=== PATIENT | female | born 1955 | race African-American/Black ===

== ENCOUNTER 2021-12-26 04:46 | Day surgery (SDC) | payer OTHER ==
[2021-12-22 15:24] VITALS: BMI 32.3
[2021-12-26 12:01] VITALS: TEMP 97.8
[2021-12-26 12:28] VITALS: PULSE 47
[2021-12-26 12:42] VITALS: BP 133/67
== END 2021-12-26 13:22 | disposition home or self-care (01) ==
LOC: JASU-ENDO 04:46
PROVIDERS: ATTEND Internal Medicine Gastroenterology
PROC: 0DB78ZX Excision of Stomach, Pylorus, Via Natural or Artificial Opening Endoscopic, Diagnostic (ICD-10-PCS; 2021-12-26)
PROC: 0DB68ZX Excision of Stomach, Via Natural or Artificial Opening Endoscopic, Diagnostic (ICD-10-PCS; 2021-12-26)
PROC: 0DB48ZX Excision of Esophagogastric Junction, Via Natural or Artificial Opening Endoscopic, Diagnostic (ICD-10-PCS; principal; 2021-12-26 11:30)
DX: K21.00 Gastro-esophageal reflux disease with esophagitis, without bleeding (principal); K44.9 Diaphragmatic hernia without obstruction or gangrene; K29.50 Unspecified chronic gastritis without bleeding
CPT/HCPCS: 82962; 88305-TC; 88342-TC

== ENCOUNTER 2022-12-21 17:13 | Inpatient (IN) | payer OTHER ==
[2022-12-21] MEDS ORDERED: LACTATED RINGERS SOLUTION 1000 ML INFUS.BAG IV ONE (18:11)
[2022-12-21] MEDS ORDERED: ACETAMINOPHEN 1000 MG/100 ML BAG IVPB ONE (18:14)
[2022-12-21] MEDS ORDERED: FAMOTIDINE 20 MG TABLET PO ONE (18:15)
[2022-12-21] MEDS ORDERED: MAG HYDROX/AL HYDROX/SIMETH 30 ML UNIT-DOSE CUP PO ONE (18:15)
[2022-12-21] MEDS ORDERED: FAMOTIDINE 20 MG TABLET ONE (18:30)
[2022-12-21] MEDS ORDERED: ACETAMINOPHEN INJECTION 100 ML IVPB ONE (18:30)
[2022-12-21] MEDS ORDERED: MAG HYDROX/AL HYDROX/SIMETH 30 ML UNIT-DOSE CUP ONE (18:31)
[2022-12-21 19:24] LABS: BASO % 0.2 % (0-2.0); EOS % 0.1 % (0-4.5); HEMATOCRIT 37.9 % (32.4-45.2); LYMPH % 6.9 % (8-40); MCH 27.3 pg (25.7-33.7); MCHC 31.7 g/dl (32.0-36.0); MEAN CELL VOLUME 86.2 fl (80-96); MEAN PLT VOLUME 10.3 fl (7.5-11.1); MONO % 11.4 % (3.8-10.2); NEUT % 81.4 % (42.8-82.8); PLATELET COUNT 217 10^3/uL (134-434); RDW 16.3 % (11.6-15.6); WHITE BLOOD COUNT 12.8 K/mm3 (4.0-10.0)
[2022-12-21 19:43] LABS: POTASSIUM 3.5 mmol/L (3.5-5.1)
[2022-12-21 19:45] LABS: CALCIUM 8.9 mg/dL (8.5-10.1)
[2022-12-21 19:46] LABS: ALBUMIN 3.1 g/dl (3.4-5.0); BLOOD UREA NITROGEN 19.9 mg/dL (7-18)
[2022-12-21 19:47] LABS: MAGNESIUM 2.1 mg/dL (1.8-2.4)
[2022-12-21 19:50] LABS: BILIRUBIN,TOTAL 0.3 mg/dL (0.2-1); TOT PROT 6.4 g/dl (6.4-8.2)
[2022-12-21] MEDS ORDERED: ASPIRIN 81 MG CHEWABLE TABLETS PO ONE (21:53)
[2022-12-21] MEDS ORDERED: ASPIRIN 81 MG CHEWABLE TABLETS ONE (22:02)
[2022-12-22 00:22] LABS: EPI CELLS 12 /uL (0-25.1); HYALINE CASTS 0 /uL (0-3.1); PH,URINE 6.5 (5.0-8.0); URINE APPEARANCE CLEAR; URINE BACTERIA 36 /uL (0-1359); URINE BILIRUBIN NEGATIVE (NEGATIVE); URINE COLOR YELLOW; URINE GLUCOSE (UA) NEGATIVE (NEGATIVE); URINE KETONE NEGATIVE (NEGATIVE); URINE LEUK ESTERASE NEGATIVE (NEGATIVE); URINE NITRITE NEGATIVE (NEGATIVE); URINE PROTEIN NEGATIVE (NEGATIVE); URINE RBC 43 /uL (0-23.9); URINE UROBILINOGEN 0.2 mg/dL (0.2-1.0); URINE WBC 5 /uL (0-25.8)
[2022-12-22 05:40] VITALS: BMI 30.6
[2022-12-22] MEDS: LEVOTHYROXINE NA 50 MCG TABLET (FP) PO SCH (06:17)
[2022-12-22 07:16] LABS: BASO % 0.7 % (0-2.0); EOS % 1.7 % (0-4.5); HEMATOCRIT 32.2 % (32.4-45.2); HEMOGLOBIN 10.6 GM/dL (10.7-15.3); LYMPH % 25.4 % (8-40); MCH 27.7 pg (25.7-33.7); MCHC 32.8 g/dl (32.0-36.0); MEAN CELL VOLUME 84.5 fl (80-96); MEAN PLT VOLUME 10.2 fl (7.5-11.1); MONO % 9.1 % (3.8-10.2); NEUT % 63.1 % (42.8-82.8); PLATELET COUNT 191 10^3/uL (134-434); RBC 3.81 M/mm3 (3.60-5.2); RDW 15.8 % (11.6-15.6); WHITE BLOOD COUNT 9.6 K/mm3 (4.0-10.0)
[2022-12-22 07:31] LABS: CHLORIDE 106 mmol/L (98-107); SODIUM 143 mmol/L (136-145)
[2022-12-22 07:37] LABS: ALBUMIN 2.9 g/dl (3.4-5.0); BLOOD UREA NITROGEN 16.9 mg/dL (7-18); CO2 28 mmol/L (21-32); GLUCOSE,RANDOM 89 mg/dL (74-106)
[2022-12-22 07:40] LABS: CREATININE 0.8 mg/dL (0.55-1.3); SGOT/AST 12 U/L (15-37); SGPT/ALT 18 U/L (13-61)
[2022-12-22 07:42] LABS: ALK PHOS 67 U/L (45-117); BILIRUBIN,TOTAL 0.3 mg/dL (0.2-1)
[2022-12-22 07:45] LABS: ANION GAP 9 MMOL/L (8-16); POTASSIUM 2.7 mmol/L (3.5-5.1)
[2022-12-22 08:58] LABS: CHLORIDE 106 mmol/L (98-107); SODIUM 142 mmol/L (136-145)
[2022-12-22 09:04] LABS: POTASSIUM 2.8 mmol/L (3.5-5.1)
[2022-12-22 09:09] LABS: EPI CELLS 6 /uL (0-25.1); HYALINE CASTS 0 /uL (0-3.1); PH,URINE 6.5 (5.0-8.0); URINE APPEARANCE CLEAR; URINE BACTERIA 56 /uL (0-1359); URINE BILIRUBIN NEGATIVE (NEGATIVE); URINE COLOR YELLOW; URINE GLUCOSE (UA) NEGATIVE (NEGATIVE); URINE KETONE NEGATIVE (NEGATIVE); URINE LEUK ESTERASE NEGATIVE (NEGATIVE); URINE NITRITE NEGATIVE (NEGATIVE); URINE PROTEIN NEGATIVE (NEGATIVE); URINE RBC 33 /uL (0-23.9); URINE UROBILINOGEN 0.2 mg/dL (0.2-1.0); URINE WBC 4 /uL (0-25.8)
[2022-12-22 09:09] LABS: ALBUMIN 3.2 g/dl (3.4-5.0); ANION GAP 9 MMOL/L (8-16); BLOOD UREA NITROGEN 15.8 mg/dL (7-18); CALCIUM 9.1 mg/dL (8.5-10.1); CO2 28 mmol/L (21-32); GLUCOSE,RANDOM 100 mg/dL (74-106); MAGNESIUM 2.3 mg/dL (1.8-2.4)
[2022-12-22 09:12] LABS: CREATININE 0.8 mg/dL (0.55-1.3); PHOSPHOROUS 2.4 mg/dL (2.5-4.9); SGOT/AST 12 U/L (15-37); SGPT/ALT 20 U/L (13-61)
[2022-12-22 09:14] LABS: BILIRUBIN,TOTAL 0.3 mg/dL (0.2-1); TOT PROT 6.5 g/dl (6.4-8.2)
[2022-12-22 09:15] LABS: ALK PHOS 72 U/L (45-117)
[2022-12-22 09:19] LABS: CHOLESTEROL 117 mg/dL (50-200)
[2022-12-22 09:20] LABS: LDL CHOLESTEROL (ONLY SJRH) 65 mg/dL (5-100)
[2022-12-22 09:21] LABS: HDL CHOLESTEROL 44 mg/dL (40-60)
[2022-12-22] MEDS: amLODIPine BESYLATE 10 MG TABLET (FP) PO SCH (09:56)
[2022-12-22] MEDS: GABAPENTIN 300 MG CAPSULE PO SCH (09:56)
[2022-12-22] MEDS: CLOPIDOGREL BISULFATE 75 MG TABLET (FP) PO SCH (09:56)
[2022-12-22] MEDS: LOSARTAN 50MG/HCTZ 12.5MG 1 TAB PO SCH (09:57)
[2022-12-22] MEDS: POTASSIUM CHLORIDE TABS 20 MEQ TABLET.ER (FP) PO SCH (09:57)
[2022-12-22] MEDS: PANTOPRAZOLE 40 MG TABLET PO SCH (09:57)
[2022-12-22] MEDS: ASPIRIN 81 MG CHEWABLE TABLETS PO SCH (09:57)
[2022-12-22] MEDS: ENOXAPARIN NA (PORCINE) 40 MG/0.4 ML DISP.SYRIN SQ SCH (09:57)
[2022-12-22] MEDS: KCL 10 MEQ IVPB 10 MEQ/100 ML INFUS.BAG IVPB SCH ×2 (10:19→11:53)
[2022-12-22] MEDS ORDERED: NAPH,MB-DB/K PH,MBDB POWDER PACKET PO ONE ×2 (10:30→20:00)
[2022-12-22] MEDS ORDERED: POTASSIUM CHLORIDE ORAL LIQUID 20 MEQ/15 ML PO ONE (10:30)
[2022-12-22] MEDS: TENOFOVIR DISOPROXIL FUMARATE 300 MG TABLET PO SCH (10:37)
[2022-12-22 17:26] LABS: POTASSIUM 3.6 mmol/L (3.5-5.1)
[2022-12-22 17:29] LABS: ALBUMIN 3.1 g/dl (3.4-5.0); BLOOD UREA NITROGEN 14.6 mg/dL (7-18); MAGNESIUM 2.3 mg/dL (1.8-2.4)
[2022-12-22 17:32] LABS: CREATININE 0.8 mg/dL (0.55-1.3); PHOSPHOROUS 2.8 mg/dL (2.5-4.9)
[2022-12-22 17:33] LABS: BILIRUBIN,TOTAL 0.1 mg/dL (0.2-1); TOT PROT 6.3 g/dl (6.4-8.2)
[2022-12-22] MEDS ORDERED: POTASSIUM CHLORIDE TABS 20 MEQ TABLET.ER (FP) PO ONE (18:00)
[2022-12-22] MEDS ORDERED: ATORVASTATIN CA 80 MG TABLET (FP) PO SCH (22:00)
[2022-12-23] MEDS: LEVOTHYROXINE NA 50 MCG TABLET (FP) PO SCH (06:01)
[2022-12-23 06:40] LABS: BASO % 0.5 % (0-2.0); EOS % 2.5 % (0-4.5); HEMATOCRIT 32.6 % (32.4-45.2); HEMOGLOBIN 10.6 GM/dL (10.7-15.3); LYMPH % 30.6 % (8-40); MCH 27.7 pg (25.7-33.7); MCHC 32.5 g/dl (32.0-36.0); MEAN CELL VOLUME 85.2 fl (80-96); MEAN PLT VOLUME 9.6 fl (7.5-11.1); MONO % 8.4 % (3.8-10.2); PLATELET COUNT 190 10^3/uL (134-434); RBC 3.83 M/mm3 (3.60-5.2); RDW 15.8 % (11.6-15.6)
[2022-12-23] MEDS: ASPIRIN 81 MG CHEWABLE TABLETS PO SCH (09:45)
[2022-12-23] MEDS: ENOXAPARIN NA (PORCINE) 40 MG/0.4 ML DISP.SYRIN SQ SCH (09:45)
[2022-12-23] MEDS: TENOFOVIR DISOPROXIL FUMARATE 300 MG TABLET PO SCH (09:45)
[2022-12-23] MEDS: CLOPIDOGREL BISULFATE 75 MG TABLET (FP) PO SCH (09:45)
[2022-12-23] MEDS: POTASSIUM CHLORIDE TABS 20 MEQ TABLET.ER (FP) PO SCH (09:45)
[2022-12-23] MEDS: amLODIPine BESYLATE 10 MG TABLET (FP) PO SCH (09:45)
[2022-12-23] MEDS: GABAPENTIN 300 MG CAPSULE PO SCH (09:45)
[2022-12-23] MEDS: PANTOPRAZOLE 40 MG TABLET PO SCH (09:45)
[2022-12-23 10:28] VITALS: PULSE 52; RESP 18
[2022-12-23] MEDS: LOSARTAN 50MG/HCTZ 12.5MG 1 TAB PO SCH (10:43)
[2022-12-23 13:43] VITALS: BP 111/67; TEMP 98.3
== END 2022-12-23 18:04 | disposition home or self-care (01) | DRG 392 ==
LOC: JER 17:13 → JERBED 22:00 → INTOOBSV 12-22 00:11 → OBSVTOIN 12-22 00:11 → J4S 12-22 01:04
PROVIDERS: ADMIT Internal Medicine; ATTEND Internal Medicine
DX: A05.9 Bacterial foodborne intoxication, unspecified (principal); K52.1 Toxic gastroenteritis and colitis; I10 Essential (primary) hypertension; E11.9 Type 2 diabetes mellitus without complications; K21.9 Gastro-esophageal reflux disease without esophagitis; E03.9 Hypothyroidism, unspecified; E66.9 Obesity, unspecified; E78.5 Hyperlipidemia, unspecified; Z68.30 Body mass index [BMI] 30.0-30.9, adult; K76.0 Fatty (change of) liver, not elsewhere classified; G40.909 Epilepsy, unspecified, not intractable, without status epilepticus; B19.20 Unspecified viral hepatitis C without hepatic coma; E87.6 Hypokalemia; Z86.73 Personal history of transient ischemic attack (TIA), and cerebral infarction without residual deficits; K44.9 Diaphragmatic hernia without obstruction or gangrene; R91.1 Solitary pulmonary nodule; T50.905A Adverse effect of unspecified drugs, medicaments and biological substances, initial encounter; Y92.89 Other specified places as the place of occurrence of the external cause
CPT/HCPCS: 0241U-QW; 36415; 71045-TC-FY; 74177-TC; 80053; 80061; 81003; 82962; 83735; 84100; 84484; 85025; 87086; 93005; 93010; 93306-TC; 99285-25; G0378; Q9967

== ENCOUNTER 2023-02-17 10:58 | Emergency (ER) | payer OTHER ==
[2023-02-17 11:04] VITALS: RESP 18; TEMP 98; BMI 30.4
[2023-02-17 11:55] LABS: BASO % 0.7 % (0-2.0); EOS % 1.5 % (0-4.5); HEMATOCRIT 36.3 % (32.4-45.2); HEMOGLOBIN 12.3 GM/dL (10.7-15.3); LYMPH % 43.3 % (8-40); MCH 28.4 pg (25.7-33.7); MCHC 33.9 g/dl (32.0-36.0); MEAN CELL VOLUME 83.8 fl (80-96); MEAN PLT VOLUME 8.9 fl (7.5-11.1); MONO % 10.4 % (3.8-10.2); NEUT % 44.1 % (42.8-82.8); PLATELET COUNT 208 10^3/uL (134-434); RBC 4.34 M/mm3 (3.60-5.2); RDW 15.9 % (11.6-15.6); WHITE BLOOD COUNT 5.2 K/mm3 (4.0-10.0)
[2023-02-17 12:11] LABS: POTASSIUM 3.8 mmol/L (3.5-5.1)
[2023-02-17 12:13] LABS: CALCIUM 8.9 mg/dL (8.5-10.1)
[2023-02-17 12:14] LABS: ALBUMIN 3.6 g/dl (3.4-5.0); BLOOD UREA NITROGEN 10.5 mg/dL (7-18)
[2023-02-17 12:17] LABS: CREATININE 0.8 mg/dL (0.55-1.3)
[2023-02-17 12:19] LABS: BILIRUBIN,TOTAL 0.2 mg/dL (0.2-1); TOT PROT 7.7 g/dl (6.4-8.2)
[2023-02-17 12:46] VITALS: BP 140/66; PULSE 53
== END 2023-02-17 12:49 | disposition home or self-care (01) ==
LOC: JER 10:58
DX: R00.1 Bradycardia, unspecified (principal); I10 Essential (primary) hypertension
CPT/HCPCS: 36415; 80053; 85025; 93005; 93010; 99284-25

== ENCOUNTER 2024-01-11 19:34 | Emergency (ER) | payer OTHER ==
[2024-01-11 19:40] VITALS: BP 149/79; PULSE 83; RESP 18; TEMP 98.7; BMI 30.6
[2024-01-11] MEDS ORDERED: diphenhydrAMINE HCL 25 MG CAPSULE (FP) PO ONE (20:50)
[2024-01-11] MEDS: diphenhydrAMINE HCL 25 MG CAPSULE (FP) PO ONE (20:53)
== END 2024-01-11 22:53 | disposition home or self-care (01) ==
LOC: JER 19:34 → JERFT 19:34
DX: H57.89 Other specified disorders of eye and adnexa (principal); H04.203 Unspecified epiphora, bilateral
CPT/HCPCS: 99283-25